=== PATIENT | female | born 2000 | race Caucasian/White ===

== ENCOUNTER 2023-02-18 15:04 | Emergency (ER) | payer OTHER ==
[~2023-02-18] VITALS: Ht 165.1 cm; Wt 90.7 kg
[2023-02-18 16:26] LABS: BASO % 0.4 % (0.0-1.0); EOS % 0.1 % (1.0-4.0); HEMATOCRIT 40.8 % (37.0-47.0); LYMPH # 1.4 10*3/uL (1.3-4.4); LYMPH % 18.5 % (27.0-41.0); MEAN CELL VOLUME 90.3 fl (81.0-99.0); MEAN CORPUSCULAR HGB CONC 32.1 g/dl (33.0-37.0); MEAN PLATELET VOLUME 10.6 fl (9.6-12.3); MONO # 0.3 10*3/uL (0.1-1.0); MONO % 4.1 % (3.0-9.0); NEUT # 5.8 10*3/uL (2.3-7.9); NEUT % 76.5 % (47.0-73.0); PLATELET COUNT AUTOMATED 252 10*3/uL (130-400); RED BLOOD COUNT 4.52 10*6/uL (4.10-5.10); RED CELL DISTRI WIDTH 12.5 % (0-14.5); WHITE BLOOD COUNT 7.6 10*3/uL (4.8-10.8)
[2023-02-18 16:47] LABS: BILIRUBIN Negative (Negative); BLOOD Negative (Negative); CLARITY Clear (Clear); COLOR Yellow (Yellow); GLUCOSE Negative (Negative); KETONE Negative (Negative); LEUKO ESTERASE 1+ (Negative); NITRITE Negative (Negative); UROBILINOGEN 0.2 E.U./dl (0.0-1.0)
[2023-02-18 16:48] LABS: ALKALINE PHOSPHATASE 118 U/L (46-116); B-hCG (QUALITATIVE) NEGATIVE (NEGATIVE); BUN 9 mg/dl (9-23); CHLORIDE 103 mmol/L (98-107); SGPT/ALT 33 U/L (10-49); TOTAL PROTEIN 7.2 gm/dL (6.0-8.0)
[2023-02-18 16:55] LABS: BACTERIA 1+; MUCOUS 1+
[2023-02-18] MEDS ORDERED: MELOXICAM15 MG PO (18:53)
== END 2023-02-18 18:45 | disposition home or self-care (01) ==
LOC: ED 15:04
PROVIDERS: Emergency Medicine
DX: R10.31 Right lower quadrant pain (principal); R35.0 Frequency of micturition; R39.11 Hesitancy of micturition; Z88.1 Allergy status to other antibiotic agents; Z88.8 Allergy status to other drugs, medicaments and biological substances

== ENCOUNTER → 2023-02-26 | Outpatient (CLI) | payer OTHER ==
[~2023-02-26] MED LIST: MELOXICAM15 MG PO
== END | disposition home or self-care (01) ==
LOC: US 01:45
PROVIDERS: ATTEND Nurse Practitioner Women's Health
DX: N85.8 Other specified noninflammatory disorders of uterus (principal); R19.00 Intra-abdominal and pelvic swelling, mass and lump, unspecified site